=== PATIENT | female | born 1990 | race Caucasian/White ===

== ENCOUNTER 2016-11-08 16:01 | Emergency (ER) | payer OTHER ==
[~2016-11-08] VITALS: Ht 149.9 cm; Wt 50.0 kg
[2016-11-08 16:02] VITALS: BP 117/54; PULSE 65; RESP 14; TEMP 97.9; O2SAT 98
--- NOTE | 2016-11-08 16:36 | PD ---
HPI Chief Complaint: Related Problem Time Seen by Provider: 16:35 Travel History International Travel<30 days: No Contact w/Intl Traveler<30days: No Traveled to known affect area: No History of Present Illness HPI 26-year-old female presents to the emergency department requesting a blood test to confirm . She took 2 tests yesterday which were both positive. Her "old man" told her that he wanted blood test to confirm her . Her last menstrual period was mid October. She denies abdominal cramping, pain, vaginal bleeding. Reports feeling nauseated this morning without vomiting. No other medical complaints. No other modifying factors or associated signs and symptoms. History Past Medical Histgory LMP: 10/22/16 Allergies-Medications (Allergen,Severity, Reaction): Coded Allergies: No Known Allergies (Unverified , 11/08/16) Reported Meds & Prescriptions Reported Meds & Active Scripts Active No Active Prescriptions or Reported Medications Review of Systems Except as stated in HPI: all other systems reviewed are Neg Physical Exam Narrative GENERAL: Well-nourished, well-developed female patient, in no acute distress; afebrile, nontoxic-appearing SKIN: Warm and dry. HEAD: Atraumatic. Normocephalic. EYES: Pupils equal and round. No scleral icterus. No injection or drainage. ENT: Mucosa pink and moist. Airway patent. NECK: Trachea midline. CARDIOVASCULAR: Regular rate. RESPIRATORY: No accessory muscle use. GASTROINTESTINAL: Flat. MUSCULOSKELETAL: No obvious deformities. No clubbing. No cyanosis. No edema. NEUROLOGICAL: Awake and alert. Oriented 3. No obvious cranial nerve deficits. Motor grossly within normal limits. Normal speech. PSYCHIATRIC: Appropriate mood and affect; insight and judgment normal. Data Data Last Documented VS Vital Signs Date Time Temp Pulse Resp B/P Pulse Ox O2 Delivery O2 Flow Rate FiO2 11/08/16 16:02 97.9 65 14 117/54 98 MDM Medical Screen Exam Complete: Yes Emergency Medical Condition: No Differential Diagnosis , medical clearance, malingering Narrative Course 26-year-old female requesting to confirm with blood test. Last menstrual period mid October. Vital signs are stable and the patient is stable for outpatient follow-up and treatment. The patient has no urgent or emergent medical complaints. There is no emergent or urgent medical need at this time. I instructed the patient to follow up with their primary care provider. A medical screening exam was performed: At the time of evaluation the presenting medical condition was determined not to be of an emergent nature. The patient was given the option of receiving additional care, but declined. Patient was given options for additional community resources from which to obtain care. The Patient Has Been advised to seek medical attention for their presenting complaint. The patient has been advised to return to the ER at any time if an emergent condition develops. Primary Impression: Encounter for medical screening examination Scripts No Active Prescriptions or Reported Meds Condition: Stable Layla Atwood November 08, 2016 16:36
== END 2016-11-08 16:49 | disposition left against medical advice (07) ==
LOC: NEPK 16:01
DX: R11.0 Nausea (principal)
CPT/HCPCS: 99281